=== PATIENT | female | born 1960 | race Caucasian/White ===

== ENCOUNTER → 2025-04-07 11:59 | Outpatient (CLI) | payer OTHER, SELFPAY ==
--- NOTE | 2025-04-07 12:10 | DI.RAD.S_ITS ---
PROCEDURE: XR WRIST LT MIN 3V INDICATIONS: LEFT WRIST PAIN TECHNIQUE: 3 views of the wrist were acquired. COMPARISON: None. FINDINGS: Bones: No fractures or dislocations. No suspicious bony lesions. Soft tissues: No suspicious soft tissue calcifications. IMPRESSION: No acute bony abnormality. Dictated by: Ok Malave M.D. on 04/08/2025 at 2:26 Approved by: Ok Malave M.D. on 04/08/2025 at 2:27
== END ==
PROVIDERS: PCP Family Medicine; Referring Provider Family Medicine; Visit Provider Family Medicine
DX: M25.532 Pain in left wrist (principal)
CPT/HCPCS: 73110

== ENCOUNTER 2025-05-24 17:25 | Emergency (ER) | payer OTHER, SELFPAY ==
[2025-05-24] VITALS (7 sets, daily range): BP systolic 169–178; BP diastolic 76–87; PULSE 56–72; RESP 18; TEMP 36.9; O2SAT 98–100; BMI 19.2
[2025-05-24] MEDS: ONDANSETRON 4 MG/2 ML INJ IV (17:33)
[2025-05-24] MEDS: KETOROLAC 30 MG/ML VIAL 15 MG IV (17:33)
[2025-05-24] MEDS: SODIUM CHLORIDE 0.9% 1,000 ML 1000 ML IV (17:36)
--- NOTE | 2025-05-24 17:47 | DI.CT.S_ITS ---
PROCEDURE: CT KIDNEY URETER BLADDER (KUB) INDICATIONS: right flank pain TECHNIQUE: CT of the abdomen and pelvis was obtained without intravenous contrast. Coronal and sagittal reformats were performed. For radiation dose reduction, the following was used: automated exposure control, adjustment of mA and/or kV according to patient size. COMPARISON: None. FINDINGS: Image quality: Diagnostic. Lower Chest: No significant findings. ABDOMEN: Liver: No contour-deforming mass. Gallbladder: No radiopaque gallstones or wall thickening. Biliary ducts: No biliary dilation. Pancreas: No ductal dilation. Spleen: Size is within normal limits. Adrenal Glands: No adrenal nodules. Kidneys and Ureters: There is moderate right hydronephrosis. There is also significant perinephric edema on the right, with suggestion of anamaria fluid accumulation in the perinephric space superiorly. There is a 2 millimeter stone at the right UVJ. There are at least 3 nonobstructing calculi in the left kidney measuring 2-4 millimeter and there is also a 3 millimeter nonobstructing calculus in the right renal pelvis, also with a nephrolith on the right more anteriorly. There is also mild left hydronephrosis, with normal caliber of the left ureter. No ureteral calculi seen on the left. Stomach and Bowel: Normal colonic caliber, without significant wall thickening. Peritoneum: No abnormal intraperitoneal fluid. No free air. Ventral Wall: No significant hernia. Abdominal Nodes: No retroperitoneal or mesenteric adenopathy by size criteria. Vessels: Aorta and inferior vena cava are normal in size. PELVIS: Pelvic Organs: Status post hysterectomy. No adnexal mass seen. Bladder: Unremarkable. Pelvic Nodes: No enlarged lymph nodes. Miscellaneous: No inguinal hernias are seen. Bones: No aggressive osseous abnormality. IMPRESSION: 1. There is a 2 millimeter obstructing calculus at the right UVJ. There is moderate right hydronephrosis, with findings suggestive also of forniceal rupture on the right. 2. Bilateral nonobstructing renal calculi as above. 3. 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 Dictated by: Zoran Neumann M.D. on 05/24/2025 at 18:00 Approved by: Zoran Neumann M.D. on 05/24/2025 at 18:04
[2025-05-24 17:55] LABS: Add Manual Diff / Slide Review NO; Basophils Absolute Auto 100 /uL (0-100); Basophils Percent Auto 0.7 % (0-2); Eosinophils Absolute Auto 100 /uL (0-450); Eosinophils Percent Auto 1.4 % (2-4); Hematocrit 38.3 % (36-46); Hemoglobin 13.1 g/dL (12.0-16.0); Lymphocytes Absolute Auto 2200 /uL (1100-4500); Lymphocytes Percent Auto 32.2 % (25-40); Mean Corpuscular HGB Conc 34.2 % (30-36); Mean Corpuscular Hemoglobin 31.2 PG (26-34); Mean Corpuscular Volume 91.2 fL (80-100); Monocytes Absolute Auto 600 /uL (0-900); Neutrophils Absolute Auto 4000 /uL (1500-7000); Neutrophils Percent Auto 57.7 % (50-75); Platelet Count 216 X10^3/uL (150-400); White Blood Cell Count 6.9 X10^3/uL (4.5-11.0)
[2025-05-24 18:13] LABS: Alanine Aminotransferase 17 IU/L (<35); Albumin 4.7 g/dL (3.5-5.0); Albumin Globulin Ratio 1.6 (1.0-2.8); Alkaline Phosphatase 74 U/L (38-126); Aspartate Aminotransferase 35 IU/L (14-36); BUN Creatinine Ratio 21.5 (6-22); Bilirubin Total 0.9 mg/dL (0.2-1.3); Blood Urea Nitrogen 20 mg/dL (7-17); Calcium 9.7 mg/dL (8.4-10.2); Carbon Dioxide 24 mmol/L (22-32); Chloride 104 mmol/L (98-107); Estimated Glomerular Filt Rate > 60 mL/min (>60); Glucose 133 mg/dL (70-99); HEMOLYSIS 45 (0-50); Potassium 3.7 mmol/L (3.4-5.1); Sodium 138 mmol/L (137-145); Total Protein 7.7 g/dL (6.3-8.2)
[2025-05-24] MEDS: HYDROMORPHONE 0.5 MG INJ IV (18:16)
--- NOTE | 2025-05-24 18:23 | ED.GENADULT ---
HPI - General Adult General Chief complaint: Abdominal Pain Stated complaint: RLQ Abd/ Flank Pain Time Seen by Provider: 05/24/25 17:26 Source: patient Mode of arrival: EMS History of Present Illness HPI narrative: 64-year-old woman with no significant medical history presents complaining of severe right flank pain associated with diaphoresis and nausea. Acute onset at 3:00 p.m. this afternoon. She has never had similar findings. Was in her usual good health, no recent fevers, cough, chills no urinary symptoms no vaginal discharge Related Data Previous Rx's ?Medication ?Instructions ?Recorded hydrocodone 5 mg-acetaminophen 325 1 tab PO Q6H PRN pain #14 tabs 05/24/25 mg tablet tamsulosin 0.4 mg capsule (Flomax) 0.4 mg PO DAILY #30 caps 05/24/25 Allergies Allergy/AdvReac Type Severity Reaction Status Date / Time morphine AdvReac Vomiting Verified 05/24/25 17:32 Review of Systems Review of Systems Narrative: Pertinent positive and negative findings as per HPI Patient History Social History Smoking Status: Never smoker Smoking Status: Never smoker Exam Initial Vital Signs Initial Vital Signs: Vital Signs Blood Pressure 175/87 H 05/24/25 17:28 Pulse Oximetry 99 05/24/25 17:28 General: Healthy appearing, in no acute distress. Able to give a complete and coherent history. Well-nourished well-developed HEENT: Moist mucous membranes, normal sclera with reactive pupils, Respiratory: Lungs are clear to auscultation, no wheezing no rales no rhonchi. Full and symmetrical air movement Cardiac: Regular rate and rhythm no murmurs no bruits Abdomen: Soft, tender into the right lower quadrant, right flank pain that is not specifically reproducible with palpation. No rebound or guarding Skin: Diaphoretic without rash Neurologic: Grossly neurologically intact with no obvious asymmetries or abnormalities Extremities: No trauma, well perfused Psych: Cooperative, appropriate insight and affect Course Orders Ordered: Discontinued Medications Hydrocodone Bitart/Acetaminophen (Hydrocodone/Acet 5/325 Tablet) 1 tab PO NOW ONE Stop: 05/24/25 18:43 Last Admin: 05/24/25 18:56 Dose: 1 tab Documented By: ROBBIE Hydrocodone Bitart/Acetaminophen (Hydrocodone/Acet 5/325 Prepack) 1 bottle MISC DIRECTED ONE Stop: 05/24/25 18:43 Last Admin: 05/24/25 19:33 Dose: 1 bottle Documented By: KALEIGH Hydromorphone HCl (Hydromorphone 0.5 Mg Inj) 0.5 mg IV Q15MIN PRN PRN Reason: Pain, Last Admin: 05/24/25 18:16 Dose: 0.5 mg Documented By: ROBBIE Sodium Chloride (Normal Saline 0.9%) 1,000 mls @ 1,000 mls/hr IV BOLUS ONE Stop: 05/24/25 18:27 Last Infusion: 05/24/25 18:42 Dose: Infused Documented By: Admin: 05/24/25 17:36 Dose: 1,000 mls/hr Documented By: ROBBIE Ketorolac Tromethamine (Ketorolac 30 Mg/Ml Vial) 15 mg IV NOW ONE Stop: 05/24/25 17:29 Last Admin: 05/24/25 17:33 Dose: 15 mg Documented By: ROBBIE Ondansetron HCl (Ondansetron 4 Mg/2 Ml Inj) 4 mg IV NOW ONE Stop: 05/24/25 17:29 Last Admin: 05/24/25 17:33 Dose: 4 mg Documented By: ROBBIE Tamsulosin HCl (Tamsulosin 0.4 Mg Capsule) 0.4 mg PO NOW ONE Stop: 05/24/25 18:43 Last Admin: 05/24/25 18:56 Dose: 0.4 mg Documented By: ROBBIE Vital Signs Vital signs: Vital Signs - 8 hr 05/24/25 17:32 Temperature 98.4 F Pulse Rate 72 Respiratory Rate 18 Blood Pressure 175/82 H Pulse Oximetry 99 Oxygen Delivery Method Room Air Medical Decision Making Lab Data 05/24/25 17:37 05/24/25 17:37 Labs: Lab Results 05/24/25 Range/Units 17:37 WBC 6.9 (4.5-11.0) X10^3/uL RBC 4.20 (4.0-5.2) X10^6/uL Hgb 13.1 (12.0-16.0) g/dL Hct 38.3 (36-46) % MCV 91.2 (80-100) fL MCH 31.2 (26-34) PG MCHC 34.2 (30-36) % RDW 13.0 (11.6-14.8) % Plt Count 216 (150-400) X10^3/uL Neut % (Auto) 57.7 (50-75) % Lymph % (Auto) 32.2 (25-40) % [place] % (Auto) 8.0 (3-14) % Eos % (Auto) 1.4 L (2-4) % Baso % (Auto) 0.7 (0-2) % Neut # (Auto) 4000 (5779-1050) /uL Lymph # (Auto) 2200 (3151-2287) /uL [place] # (Auto) 600 (0-900) /uL Eos # (Auto) 100 (0-450) /uL Baso # (Auto) 100 (0-100) /uL Sodium 138 (137-145) mmol/L Potassium 3.7 (3.4-5.1) mmol/L Chloride 104 (98-107) mmol/L Carbon Dioxide 24 (22-32) mmol/L BUN 20 H (7-17) mg/dL Creatinine 0.93 (0.52-1.04) mg/dL Estimated GFR > 60 (>60) mL/min BUN/Creatinine Ratio 21.5 (6-22) Glucose 133 H (70-99) mg/dL Calcium 9.7 (8.4-10.2) mg/dL Total Bilirubin 0.9 (0.2-1.3) mg/dL AST 35 (14-36) IU/L ALT 17 (<35) IU/L Alkaline Phosphatase 74 (38-126) U/L Total Protein 7.7 (6.3-8.2) g/dL Albumin 4.7 (3.5-5.0) g/dL Globulin 3.0 (1.7-4.1) g/dL Albumin/Globulin Ratio 1.6 (1.0-2.8) MDM Narrative Medical decision making narrative: CC: Acute onset severe right flank pain Complicating co-morbidities: No prior kidney stones Data collected from: patient Differential considered: Ureterolithiasis, acute appendicitis, volvulus or other acute surgical abdomen Exam documented above, pertinent findings include: Diaphoretic, pale, severe pain all in the right lower quadrant without rebound or guarding Lab Test results independently reviewed as above. Pertinent findings: Imaging studies independently reviewed: CT scan shows a 2 mm obstructing calculus in the right UVJ. Also has 3 nonobstructing stones in the left kidney, 3 mm nonobstructing stone in the right renal pelvis, nephrolith on the right more anteriorly. Consultations: Brief discussion with Dr. Horowitz, regarding the findings ?suggestive of forniceal rupture on the right?. He agreed that continued treatment for usual kidney stone pain and management would be appropriate with no additional workup concerns or antibiotic requirements with this finding Treatments: Fluid, Zofran, Toradol, half a mg of Dilaudid, 1 Vicodin Re-evaluations: Patient is feeling better. We talked about using pain medication to prevent getting to the level of pain she was in on arrival. Discussion: 64-year-old woman with acute ureterolithiasis, 2 mm with hydronephrosis and likely small forniceal rupture on the right. She has nonobstructing stones bilaterally. Pain has been controlled. Discussed anticipated course of resolution including the fact that she may have some of these other stones present. We will have her stay on Flomax until she passes the current stone. We will ask her to follow up with Urology knowing that she does have the other nonobstructing stone. Pain is moderately controlled, discussed importance of avoiding constipation when using narcotics. No indication for hospitalization or further imaging she is safe for discharge Discharge Plan Departure Patient Disposition: Home Clinical Impression: Ureterolithiasis, Calculus of kidney Instructions: DI for Kidney Stones Activity Restrictions/Additional Instructions: Thank you for coming in today You have experienced 10/10 pain, that was NOT a 7 ;) You have a 2 mm kidney stone that is blocking the ureter on the right side. This is what is causing that is severe pain. I have given you a dose of Flomax, this helps open up that tissue a little bit so the stone is more likely to pass. Going to give you a prescription for Flomax, you do not need to take it once the stone has been passed You do have more smaller stones in both kidneys. None of these are causing pain or problems right now however, outpatient follow up with Urology will be appropriate. Our urologist is , is office phone number is [phone]. I would suggest that you schedule an appointment with him some point in the near future Using 400 mg of ibuprofen (2 rodt-iyc-ynpatly pills) and 1 Tylenol every 6 hours can be very helpful in controlling pain. For severe pain 400 mg of ibuprofen with an additional hydrocodone/acetaminophen we will be helpful. If pain is severe you can actually take 2 of the narcotic pain pills. Narcotics can be very appropriate for severe pain, such as with kidney stones. If you need them police do use them. If you choose to use them they do cause constipation, I would recommend a stool softener as well If you find that you are getting worse or develop any new symptoms, please feel free to return to the emergency department for further evaluation. Prescriptions: New tamsulosin [Flomax] 0.4 mg capsule 0.4 mg PO DAILY Qty: 30 0RF hydrocodone-acetaminophen 5-325 mg tablet 1 tab PO Q6H PRN (Reason: pain) Qty: 14 0RF Referrals: Negrita Chicas MD [Primary Care Provider, Family Practice] Stand Alone Forms: Patient Portal/API
[2025-05-24] MEDS: TAMSULOSIN 0.4 MG CAPSULE PO (18:56)
[2025-05-24] MEDS: HYDROCODONE/ACET 5/325 TABLET 1 TAB PO (18:56)
[2025-05-24] MEDS: HYDROCODONE/ACET 5/325 PREPACK 1 BOTTLE MISC (19:33)
== END 2025-05-24 19:37 | disposition home or self-care (01) ==
PROVIDERS: Emergency Provider Emergency Medicine; PCP Family Medicine
DX: N13.2 Hydronephrosis with renal and ureteral calculous obstruction (principal)
CPT/HCPCS: 36415; 74176; 80053; 85025; 96361; 96374; 96375; 99284; J1171; J1885; J2405